=== PATIENT | female | born 1985 | race Caucasian/White ===

== ENCOUNTER → 2019-07-16 | Outpatient (CLI) | payer OTHER ==
[~2019-07-16] MED LIST: ALBU90OI; ALBU90OI INH; AMOX500 PO; HYDACE5 PO; IBUP400 PO; TRAM50 PO
[2019-07-16 19:03] LABS: U Amphetamine Screen Not Detected; U Barbituate Screen Not Detected; U Benzodiazapine Screen Not Detected; U Buprenorphine Screen Not Detected; U Cannabinoids Screen DETECTED; U Cocaine Screen Not Detected; U Methadone Screen Not Detected; U Methamphetamine Screen Not Detected; U Opiates Screen Not Detected; U Oxycodone Screen Not Detected; U Phencyclidine Screen Not Detected; U Propoxyphene Screen Not Detected
== END ==
LOC: LAB 16:58 → LAB SHORT 16:58
PROVIDERS: Registered Nurse Psychiatric/Mental Health
DX: Z51.81 Encounter for therapeutic drug level monitoring (principal); Z79.899 Other long term (current) drug therapy
CPT/HCPCS: 81025

== ENCOUNTER 2019-09-27 09:49 | Emergency (ER) | payer OTHER ==
[~2019-09-27] VITALS: Ht 167.6 cm; Wt 90.7 kg
[2019-09-27] MEDS ORDERED: Augmentin 875-1 EACH PO (11:51)
[2019-09-27] MEDS ORDERED: IBU800 MG PO (11:52)
[2019-09-27] MEDS ORDERED: ERYT1OIN BOTHEYES (11:52)
== END 2019-09-27 12:01 | disposition home or self-care (01) ==
LOC: ER 09:49
DX: H66.91 Otitis media, unspecified, right ear (principal); J02.9 Acute pharyngitis, unspecified; Z88.5 Allergy status to narcotic agent; F17.200 Nicotine dependence, unspecified, uncomplicated
CPT/HCPCS: 99282

== ENCOUNTER → 2021-12-05 | Outpatient (CLI) | payer OTHER ==
[~2021-12-05] MED LIST changes: +Augmentin 875-1 EACH PO; +ERYT1OIN BOTHEYES; +IBU800 MG PO
[2021-12-07 02:08] LABS: CHLAMYDIA TRACHOMATIS, NAA Negative (Negative)
[2021-12-07 17:11] LABS: HPV 16 Negative (Negative); HPV 18 Negative (Negative); HPV OTHER HR TYPES Positive (Negative)
== END ==
LOC: LAB 11:35 → LAB SHORT 11:35
PROVIDERS: Physician Assistant Medical
DX: Z12.4 Encounter for screening for malignant neoplasm of cervix (principal)
CPT/HCPCS: 87491; 87591

== ENCOUNTER → 2023-03-28 | Outpatient (CLI) | payer OTHER ==
[2023-03-29 07:10] LABS: HBSAG SCREEN Negative (Negative); HCV ANTIBODY Non Reactive (Non Reactive); HIV AB/P24 AG SCREEN Non Reactive (Non Reactive)
[2023-03-30 23:06] LABS: CHLAMYDIA BY NAA Negative (Negative); GONOCOCCUS BY NAA Negative (Negative); TRICH VAG BY NAA Negative (Negative)
== END | disposition home or self-care (01) ==
LOC: LAB 16:00 → LAB SHORT 16:00
PROVIDERS: Registered Nurse Community Health
DX: Z11.3 Encounter for screening for infections with a predominantly sexual mode of transmission (principal)
CPT/HCPCS: 86592; 86803; 87340; 87389; 87491; 87591; 87661

== ENCOUNTER → 2023-07-19 | Outpatient (CLI) | payer OTHER ==
[2023-08-02 22:59] LABS: HPV GENOTYPE 16 Not Detected; HPV GENOTYPE 18 Detected; HPV HIGH RISK Detected; HPV SOURCE Cervical
== END ==
LOC: LAB 11:45 → LAB SHORT 11:45
PROVIDERS: Family Medicine
DX: Z12.4 Encounter for screening for malignant neoplasm of cervix (principal)
CPT/HCPCS: 87624; G0123